=== PATIENT | female | born 1955 | race Caucasian/White ===

== ENCOUNTER → 2018-10-12 | Outpatient (CLI) | payer OTHER | LOC: FIMAGING 15:36 | PROVIDERS: ATTEND Orthopaedic Surgery | DX: M16.11 Unilateral primary osteoarthritis, right hip (principal) ==

== ENCOUNTER 2018-10-18 10:07 | Inpatient (IN) | payer OTHER ==
[~2018-10-18 10:07] MED LIST: BUPIVACAINE/EPI 0.5% 30 ML SDV ONE; POVIDONE-IODINE 20 ML in SODIUM CL IRRIG SOLUTION 500 ML IRR ONE; ROPIVACAINE 0.2% 80 MG, EPINEPHrine 0.2 MG, KETOROLAC TROMETHAMINE 30 MG in SYRINGE 0 ML IU ONE; TRANEXAMIC ACID 1,000 MG in NS 100 ML IV ONE
[2018-10-18] MEDS ORDERED: ACETAMINOPHEN 325 MG TAB PO ONE (10:16)
[2018-10-18] MEDS ORDERED: ceFAZolin 2 GM/DEXTROSE 100 ML IV ONE (10:16)
[2018-10-18] MEDS ORDERED: FAMOTIDINE 20 MG TAB PO ONE (10:16)
[2018-10-18] MEDS ORDERED: DEXAMETHASONE 4 MG/ML VIAL IVP ONE (10:16)
[2018-10-18] MEDS ORDERED: LR 1,000 ML IV ONE (10:17)
[2018-10-18] MEDS ORDERED: MIDAZOLAM 2 MG/2 ML VIAL IVP ONE (11:51)
--- NOTE | 2018-10-18 12:58 | PDHPUP ---
History & Physical Update H&P update statement: This history and physical update is based on an assessment of the patient which was completed after admission or registration (within 24 hours), but prior to the surgery/procedure. H&P update: H&P reviewed & patient examined, no change in patient's condition since H&P completed
[2018-10-18] MEDS ORDERED: PROPOFOL/EMULSION 500 MG/50 ML BOTTLE IV ONE (13:13)
--- NOTE | 2018-10-18 13:13 | PDANEPAE ---
ANE Past Medical History - Cardiovascular History Hx Hypertension: No Hx Arrhythmias: No Hx Chest Pain: No Hx Coronary Artery / Peripheral Vascular Disease: No Hx CHF / Valvular Disease: No Hx Palpitations: No - Pulmonary History Hx COPD: No Hx Asthma/Reactive Airway Disease: No Hx Recent Upper Respiratory Infection: No Hx Oxygen in Use at Home: No Hx Sleep Apnea: No Sleep Apnea Screening Result - Last Documented: Negative - Neurologic History Hx Cerebrovascular Accident: No Hx Seizures: No Hx Dementia: No Neurologic History Comment: Diagnosed with MS 20 years ago. Had visual symptoms only. Non progressive. On no medications. - Endocrine History Hx Diabetes: No - Renal History Hx Renal Disorders: No - Liver History Hx Hepatic Disorders: No - Neurological & Psychiatric Hx Hx Neurological and Psychiatric Disorders: Yes Neurological / Psychiatric History Comment: ms 1996 last exacerbation 10yrs ago. bilat neuropathy - Cancer History Hx Cancer: No - Congenital Disorder History Hx Congenital Disorders: Yes Congenital History Comment: 3 kidneys - GI History Hx Gastrointestinal Disorders: Yes Gastrointestinal History Comment: acid reflux. gastric banding 1986 - Other Health History Other Health History: full upper denture. menapausal - Chronic Pain History Chronic Pain: Yes (LLback,and cervical pain) - Surgical History Prior Surgeries: tibial spine fx repair ANE Review of Systems Review of Systems: - Exercise capacity METS (RN): 4 METS ANE Patient History - Allergies Allergies/Adverse Reactions: No Known Allergies Allergy (Verified 10/11/18 16:49) - Home Medications Home Medications: Aspirin 10/11/18 [Last Taken 1 Week Ago ~10/11/18] Cholecalciferol (Vitd3)/Vit K2 10/11/18 [Last Taken 1 Week Ago ~10/11/18] Coq-10 10/11/18 [Last Taken 1 Week Ago ~10/11/18] Iron 10/11/18 [Last Taken 1 Week Ago ~10/11/18] Multivitamin 10/11/18 [Last Taken 1 Week Ago ~10/11/18] Nexium 10/11/18 [Last Taken 10/18/18 08:00] [place]-3 10/11/18 [Last Taken Unknown] - NPO status NPO Since - Liquids (Date): 10/18/18 NPO Since - Liquids (Time): 08:00 NPO Since - Solids (Date): 10/17/18 NPO Since - Solids (Time): 23:00 - Smoking Hx Smoking Status: Former smoker - Family Anes Hx Family Hx Anesthesia Complications: none ANE Labs/Vital Signs - Vital Signs Blood Pressure: 122/79 Heart Rate: 74 Respiratory Rate: 18 O2 Sat (%): 96 Height: 166.37 cm Weight: 85.275 kg ANE Physical Exam - Airway Neck exam: FROM Mallampati Score: Class 3 Mouth exam: dentures, small mouth opening - Pulmonary Pulmonary: clear to auscultation - Cardiovascular Cardiovascular: regular rate and rhythym - ASA Status ASA Status: II ANE Anesthesia Plan Anesthesia Plan: spinal
[2018-10-18] MEDS ORDERED: BUPIVACAINE/DEXTROSE 7.5MG/ML 2 ML SPINAL AMP SP ONE (13:19)
[2018-10-18] MEDS ORDERED: PHENYLEPHRINE HCL 100 MCG/ML SYR ONE (14:13)
[2018-10-18] MEDS ORDERED: PHENYLEPHRINE 10 MG/ML SDV ONE (14:23)
[2018-10-18] MEDS ORDERED: ALBUTEROL 3 ML DEYVIAL IH PRN (14:55)
[2018-10-18] MEDS ORDERED: LABETALOL HCL 5 MG/ML 20 ML MDV IVP PRN (14:55)
[2018-10-18] MEDS ORDERED: METOCLOPRAMIDE 10 MG/2 ML VIAL IVP PRN ×2 (14:55→15:30)
[2018-10-18] MEDS ORDERED: PROMETHAZINE HCL 25 MG/ML INJ IVP PRN ×2 (14:55→15:30)
[2018-10-18] MEDS ORDERED: ONDANSETRON 4 MG/2 ML VIAL IVP PRN ×2 (14:55→15:30)
[2018-10-18] MEDS ORDERED: MEPERIDINE 25 MG/0.5 ML AMP IVP PRN (14:55)
[2018-10-18] MEDS ORDERED: NALOXONE HCL 0.4 MG/ML INJ IVP PRN (14:55)
[2018-10-18] MEDS ORDERED: PHENYLEPHRINE HCL 100 MCG/ML SYR IVP PRN (14:55)
[2018-10-18] MEDS ORDERED: DEXAMETHASONE 4 MG/ML VIAL IVP PRN (14:55)
[2018-10-18] MEDS ORDERED: LR 500 ML IV PRN (14:55)
[2018-10-18] MEDS ORDERED: DIAZEPAM 5 MG/ML 1 ML SYR IVP PRN (14:55)
--- NOTE | 2018-10-18 14:57 | POSTANESTH ---
Post Anesthetic Evaluation Cardiovascular Status: Normal, Stable Respiratory Status: Normal, Stable Level of Consciousness/Mental Status: Can Participate in Eval Pain Control: Adequate, Prn Tx Ordered Nausea/Vomiting Control: Adequate, Prn Tx Ordered Complications Possibly Related to Anesthesia: None Noted
[2018-10-18] MEDS ORDERED: DIPHENOXYLATE/ATROPINE LOMOTIL 1 TAB PO PRN (15:30)
[2018-10-18] MEDS ORDERED: BISACODYL 10 MG SUPP PR PRN (15:30)
[2018-10-18] MEDS ORDERED: POLYETHYLENE GLYCOL 3350 17 GM PKT PO PRN (15:30)
[2018-10-18] MEDS ORDERED: LACTULOSE 20 GM/30 ML UDCUP PO PRN (15:30)
[2018-10-18] MEDS ORDERED: LR 1,000 ML IV SCH (15:30)
[2018-10-18] MEDS ORDERED: TEMAZEPAM 15 MG CAP PO PRN (15:30)
[2018-10-18] MEDS ORDERED: diphenhydrAMINE 25 MG CAP PO PRN (15:30)
[2018-10-18] MEDS ORDERED: MAGNESIUM HYDROXIDE 30 ML UDCUP PO PRN (15:30)
[2018-10-18] MEDS ORDERED: PROMETHAZINE HCL 25 MG SUPPR PR PRN (15:30)
[2018-10-18] MEDS ORDERED: ONDANSETRON DISINTEGRATING 4 MG TAB PO PRN (15:30)
--- NOTE | 2018-10-18 15:30 | POSTOPPROG ---
Post Op Note Date of Operation: 10/18/18 Surgeon: Mirza Pastrana Table Maker: MICHAEL Kirkland Anesthesiologist: MD Mraia Antonia Anesthesia: IV Sedation, Spinal Pre-op Diagnosis: R femoral head subchondral fracture Post-op Diagnosis: same Procedure: R ant RENZO with HELEN Inf/Abcess present in the surg proc area at time of surgery?: No EBL: 100-500 (300) Drains: Hemovac
[2018-10-18] MEDS ORDERED: HYDROmorphONE/DILAUDID 2 MG/ML INJ ONE (15:49)
[2018-10-18] MEDS ORDERED: fentaNYL 100 MCG/2 ML INJ ONE (15:49)
[2018-10-18] MEDS: fentaNYL 100 MCG/2 ML INJ IVP PRN ×3 (15:52→16:16)
[2018-10-18] MEDS: HYDROmorphONE/DILAUDID 2 MG/ML INJ IVP PRN ×3 (15:52→16:17)
[2018-10-18] MEDS: CYCLOBENZAPRINE 10 MG TAB PO PRN (16:56)
[2018-10-18] MEDS: oxyCODONE IR 5 MG TAB PO PRN ×2 (16:57→20:57)
[2018-10-18] MEDS: ACETAMINOPHEN 325 MG TAB PO SCH ×2 (16:57→23:12)
--- NOTE | 2018-10-18 17:15 | GOP ---
DATE OF OPERATION: 10/18/2018 SURGEON: Mirza Pastrana MD EXECUTIVE ADVISOR: Tulio Kirkland, CSFA, LSA. Eye Clinic Manager was required for the procedure due to complexity of the case, patient's condition, for positioning, prepping and draping, retraction, closure. ANESTHESIA: Spinal and IV sedation. PREOPERATIVE DIAGNOSIS: Right femoral head subchondral fracture. POSTOPERATIVE DIAGNOSIS: Right femoral head subchondral fracture. PROCEDURE PERFORMED: Right hip anterior approach hip replacement with MAKOplasty robotic guidance, f luoroscopic supervision, greater than 1 hour. FINDINGS: SPECIMENS: Femoral head x1. ESTIMATED BLOOD LOSS: 300 cc. INDICATIONS: The patient sustained an injury to her right hip resulting in a subchondral fracture of the femoral head. She failed 3 months of nonoperative treatment and symptoms significantly affected activities of daily living including walking, the patient elected to proceed with anterior approach hip replacement using MAKOplasty robotic guidance and after extensive discussion of all possible appr oaches as well as risks, benefits, pros, cons, expected recovery and prognosis, the patient verbalize d understandings of the risks and benefits of the procedure and signed informed consent prior to proc edure. DESCRIPTION OF PROCEDURE: The patient is seen in the holding area and the operative consent and extr emity were signed. Patient was taken to the operating room. After smooth induction of spinal anesth esia and sedation, she was placed in supine position on the operating table with the arch table exten nieves. Hip and contralateral iliac crest were prepped and draped in usual sterile fashion. Operative site was confirmed by signature. Time-out performed. Allergies reviewed, antibiotics and TXA were administered. Three pins were placed in the contralateral iliac crest and pelvic array was fixed as well visualized by the robot. Desired incision in the anterior approach to the hip was infiltrated with 0.25% Josie ine with epinephrine. Incision made with a 10 blade and carried through the subcutaneous tissue to i dentify the TFL fascia. This was incised in line with the incision and the TFL was retracted lateral ly. The lateral femoral circumflex vessels were coagulated with Aquamantys. The deep TFL fascia was incised and the vastus lateralis was clearly exposed. Pericapsular fat was excised. A T-shaped cap sulotomy was performed. The capsule was preserved for later closure. A femoral neck cut was then performed based on pre template calculations of the imaging. The femoral head was excised with corkscrew. The acetabulum was exposed in standard fashion. The pulvinar and soft tissue were excised sharply. Pelvic checkpoint was placed in the AIIS. Acetabular registration was performed using the robot. Re aming was then performed using the robot to the desired size. The cup was impacted into place again with the robotic guidance system. Good fixation was achieved. The cup was irrigated and dried, and the liner was impacted into place achieving good locking within the cup. The femur was then exposed in standard fashion. The femur was broached to the desired size. The tri al neck and head were attached and the hip was relocated. The position of all components was confirm ed at this point fluoroscopically. The foot was externally rotated 90 degrees, extended to the floor and stability was again confirmed. The hip was then dislocated. The femoral trial components were removed. The stem was impacted into place. The trunnion was cleaned and dried and the head was impa cted on the trunnion. The wound was copiously irrigated with pulse lavage and the hip was once again relocated. Component placement was confirmed with fluoroscopy. All checkpoints were removed. The pelvic array was also removed. The wound was then copiously irrig ated with sterile solution. Dilute Betadine solution was then irrigated into the wound and allowed t o soak for 3 minutes before being irrigated out. The joint cocktail was injected into the soft tissu e. The capsule and indirect head of the rectus femoris were repaired with #1 Vicryl suture. The varinder in was placed exiting distally and laterally from deep to TFL. The wound was then closed in layers w ith #0 Quill in the TFL fascia and deep subcutaneous fat, 3-0 Versalok in the dermis. The wound was dressed with sterile dressing. The patient was safely awakened, taken to recovery room in stable con dition. All critical portions of the procedure were performed by myself, Dr. Pastrana. This operative note was c reated by myself, and I was immediately available for emergency cross-coverage at all times. DRAINS: Hemovac x1. COMPLICATIONS: None. IMPLANTS: Trident 2 hemispherical acetabular shell size 52 with a 0-degree, 36 mm polyethylene liner ; Accolade 2, size 7 stem, 127 degree offset; 36 mm -5 head. /[id number]/MODL
[2018-10-18] MEDS: ASPIRIN 81 MG CHEWABLE TAB PO SCH (20:58)
[2018-10-18] MEDS: SENNOSIDES/DOCUSATE SODIUM TAB PO SCH (20:58)
[2018-10-18] MEDS: FAMOTIDINE 20 MG TAB PO SCH (20:58)
[2018-10-18] MEDS: ceFAZolin 2 GM/DEXTROSE 100 ML IV SCH (21:04)
[2018-10-19] MEDS: oxyCODONE IR 5 MG TAB PO PRN ×4 (02:32→12:19)
[2018-10-19] MEDS: ceFAZolin 2 GM/DEXTROSE 100 ML IV SCH (05:16)
[2018-10-19] MEDS: ACETAMINOPHEN 325 MG TAB PO SCH ×2 (05:16→12:20)
--- NOTE | 2018-10-19 07:19 | SOAPPROG ---
SOAP Progress Note Assessment/Plan: Assessment: Postop day 1 status post right anterior total hip arthroplasty Plan: Weight-bearing as tolerated with assistance, PT/OT DVT prophylaxis: SCDs, Rom Hose, aspirin 81 mg twice daily x3 weeks Incentive spirometry 10 times per hour Disposition: Home today after physical therapy 10/19/18 07:17 Subjective: No acute events. Pain well controlled this morning. Denies fevers chills nausea vomiting chest pain shortness of breath numbness or tingling. Objective: Vital Signs Temp Pulse Resp BP Pulse Ox 36.7 C 70 16 103/59 L 98 10/19/18 04:00 10/19/18 04:00 10/19/18 04:00 10/19/18 04:00 10/19/18 04:00 Laboratory Results 10/19/18 05:12 10/18/18 10/19/18 10/20/18 05:59 05:59 05:59 Intake Total 3270 Output Total 1800 Balance 1470 Awake alert and oriented x3 Easy nonlabored breathing Right hip: Dressing clean dry intact no erythema drainage or signs of infection Hemovac drain removed, site clean dry intact Thigh and calf compartments soft compressible Motor intact to EHL FHL tibialis anterior gastrocsoleus Palpable DP PT pulses - Pending Discharge Pending Discharge Within 24 Hours: Yes Pending Discharge Date: 10/19/18 Pending Discharge Time: 11:00 ICD10 Worksheet Patient Problems: Problems Problem Status Onset Closed fracture of head of right femur with delayed healing Acute
[2018-10-19 07:53] VITALS: BP 109/69
[2018-10-19] MEDS: CYCLOBENZAPRINE 10 MG TAB PO PRN (08:37)
[2018-10-19] MEDS ORDERED: CHOLECALCIFEROL VIT D3 1,000 UNITS TAB PO SCH (09:00)
[2018-10-19] MEDS ORDERED: MULTIVITAMINS 1 EACH TAB PO SCH (09:00)
[2018-10-19] MEDS: ASPIRIN 81 MG CHEWABLE TAB PO SCH (09:10)
[2018-10-19] MEDS: FAMOTIDINE 20 MG TAB PO SCH (09:11)
[2018-10-19] MEDS: SENNOSIDES/DOCUSATE SODIUM TAB PO SCH (09:11)
--- NOTE | 2018-10-19 09:11 | PDMN ---
Medical Necessity Medical necessity: [facility] [place] S560 hip arthroplasty OP: R RENZO with HELEN -- AUTH [id number] APPROVED C[place] 6[address] [place]
--- NOTE | 2018-10-19 11:34 | ASMTLACE ---
LACE Length of stay for Answers: 2 days current admission Acuity / Level of Answers: Yes Care: Did the patient have an inpatient admission? Comorbidities - select Answers: Opioid dependence all that apply / Chronic pain Other Notes: Multiple scleorsis # of Emergency department Answers: 0 visits in the last 6 months Score: 10 Date Signed: 10/19/2018 11:34 AM Electronically Signed By:KEILA Eden
--- NOTE | 2018-10-19 11:35 | ASMTCMCOM ---
CM Note CM Note Notes: Pt medically stable for d/c with family support. PT rec outpatient. No CM d/c needs identified. Date Signed: 10/19/2018 11:35 AM Electronically Signed By:KEILA Eden
--- NOTE | 2018-10-24 19:56 | GDS ---
ADMITTING DIAGNOSIS: Right femoral head fracture. DISCHARGE DIAGNOSIS: Right femoral head fracture. PROCEDURE PERFORMED: Right anterior approach total hip arthroplasty. HOSPITAL COURSE: Patient underwent the above procedure on the admission day. She tolerated it well. Pain was well controlled. She was given prophylactic antibiotics and DVT prophylaxis with SCDs, TE D hose, and aspirin 81 mg b.i.d. She worked with Physical Therapy on postop day 1, was cleared for d ischarge home. DISCHARGE DISPOSITION: Home. CONDITION UPON DISCHARGE: Stable. /[id number]/MODL
== END 2018-10-19 12:51 | disposition home or self-care (01) | DRG 470 ==
LOC: F3N 10:07
PROVIDERS: ADMIT Orthopaedic Surgery; ATTEND Orthopaedic Surgery
PROC: 8E0Y0CZ Robotic Assisted Procedure of Lower Extremity, Open Approach (ICD-10-PCS; principal; 2018-10-18 12:00)
PROC: 0SR904Z Replacement of Right Hip Joint with Ceramic on Polyethylene Synthetic Substitute, Open Approach (ICD-10-PCS; principal; 2018-10-18 12:00)
DX: S72.091A Other fracture of head and neck of right femur, initial encounter for closed fracture (principal); W07.XXXA Fall from chair, initial encounter; G35 Multiple sclerosis
CPT/HCPCS: 97161-GP; 97165-GO; J0171; J0690; J1100; J1170; J1885; J2250; J2370; J2704; J2795; J3010

== ENCOUNTER → 2019-03-06 | Outpatient (CLI) | payer OTHER ==
[~2019-03-06] MED LIST changes: -BUPIVACAINE/EPI 0.5% 30 ML SDV ONE; +GADOBUTROL 10 ML VIAL IVP ONE; -POVIDONE-IODINE 20 ML in SODIUM CL IRRIG SOLUTION 500 ML IRR ONE; -ROPIVACAINE 0.2% 80 MG, EPINEPHrine 0.2 MG, KETOROLAC TROMETHAMINE 30 MG in SYRINGE 0 ML IU ONE; -TRANEXAMIC ACID 1,000 MG in NS 100 ML IV ONE
== END ==
LOC: FIMAGING 18:30
PROVIDERS: ATTEND Orthopaedic Surgery
DX: M25.451 Effusion, right hip (principal); L03.115 Cellulitis of right lower limb; Z96.641 Presence of right artificial hip joint
CPT/HCPCS: A9585

== ENCOUNTER → 2019-03-12 | Outpatient (CLI) | payer OTHER | LOC: FIMAGING 12:51 ==